=== PATIENT | male | born 1960 | race Caucasian/White ===

== ENCOUNTER → 2019-12-01 08:39 | Outpatient (BNVA) | payer OTHER, SELFPAY | PROVIDERS: Family Provider Nurse Practitioner Family; PCP Nurse Practitioner Family; Visit Provider Registered Nurse | DX: Z00.00 Encounter for general adult medical examination without abnormal findings (principal); I10 Essential (primary) hypertension | CPT/HCPCS: 80053; 80061; 85025 ==

== ENCOUNTER → 2020-12-02 11:28 | Outpatient (BNVA) | payer OTHER, SELFPAY | PROVIDERS: Family Provider Nurse Practitioner Family; PCP Nurse Practitioner Family; Visit Provider Nurse Practitioner Family | DX: I10 Essential (primary) hypertension (principal); Z00.00 Encounter for general adult medical examination without abnormal findings; M19.90 Unspecified osteoarthritis, unspecified site | CPT/HCPCS: 80053; 80061; 81003; 82306; 83036; 84443; 85025; G0103 ==

== ENCOUNTER → 2021-12-06 08:44 | Outpatient (BNVA) | payer OTHER, SELFPAY | PROVIDERS: Family Provider Nurse Practitioner Family; PCP Nurse Practitioner Family; Visit Provider Nurse Practitioner | DX: I10 Essential (primary) hypertension (principal) | CPT/HCPCS: 80053; 80061; 85025 ==

== ENCOUNTER → 2022-01-03 08:36 | Outpatient (BNVA) | payer OTHER, SELFPAY | PROVIDERS: Family Provider Nurse Practitioner Family; PCP Nurse Practitioner Family; Visit Provider Nurse Practitioner | DX: I10 Essential (primary) hypertension (principal) | CPT/HCPCS: 80048 ==

== ENCOUNTER → 2022-12-14 08:40 | Outpatient (BNVA) | payer OTHER, SELFPAY | PROVIDERS: Family Provider Nurse Practitioner Family; PCP Nurse Practitioner Family; Visit Provider Nurse Practitioner | DX: I10 Essential (primary) hypertension (principal); Z12.5 Encounter for screening for malignant neoplasm of prostate | CPT/HCPCS: 80053; 80061; 84443; 85025; G0103 ==

== ENCOUNTER → 2022-12-20 15:23 | Outpatient (BNVA) | payer OTHER, SELFPAY | PROVIDERS: Family Provider Nurse Practitioner Family; PCP Nurse Practitioner Family; Visit Provider Nurse Practitioner | DX: I10 Essential (primary) hypertension (principal) | CPT/HCPCS: 80053 ==

== ENCOUNTER → 2023-12-24 08:35 | Outpatient (BNVA) | payer OTHER, SELFPAY | PROVIDERS: Family Provider Nurse Practitioner Family; PCP Nurse Practitioner Family; Visit Provider Nurse Practitioner Family | DX: I10 Essential (primary) hypertension (principal); M19.90 Unspecified osteoarthritis, unspecified site; Z79.899 Other long term (current) drug therapy; Z13.6 Encounter for screening for cardiovascular disorders; E55.9 Vitamin D deficiency, unspecified | CPT/HCPCS: 80053; 80061; 81003; 82306; 83036; 84443; 85025; G0103 ==

== ENCOUNTER 2024-04-16 10:42 | Day surgery (SDC) | payer OTHER, SELFPAY ==
[2024-04-16 10:55] VITALS: BP 140/92; PULSE 80; RESP 18; TEMP 37.1; O2SAT 98
[2024-04-16] MEDS: sodium chloride 0.9% 1,000 ML 30 ML IV (11:08)
--- NOTE | 2024-04-16 11:44 | ANES.PREANE2 ---
Pre-Anesthetic Assessment Height/Weight: Height 1.78 m Weight 81.647 kg Temp Pulse Resp BP Pulse Ox O2 Del Method 98.7 F 80 18 140/92 98 Room Air 04/16/24 10:55 04/16/24 10:55 04/16/24 10:55 04/16/24 10:55 04/16/24 10:55 04/16/24 10:55 Preop Diagnosis: GERD,screening Operation Date: 04/16/24 12:00 Proposed Procedures p EGD 96609, 01013, G0121, Z12.11, K21.9(Not Applicable) - Evaristo Carson DO s Colonoscopy(Not Applicable) - Evaristo Carson DO Was Beta Jb taken within 24 hours: N/A Was Clonidine taken within 24 hours: N/A Last intake: Intake Last Liquid Date 04/15/24 Last Liquid Time 08:00 Last Solid Date 04/14/24 Last Solid Time 19:30 Social Alcohol Exam alert, oriented x 3, clear to auscultation bilaterally and regular rate & rhythm Airway Submandibular: within normal limits Cervical ROM: within normal limits Mallampati: Class II Dentition: full History/ROS No significant history except as noted and No significant complaints Pulmonary Cough CV/HEM Hypertension None reported Hepatic None reported GI Gastroesophageal Reflux Disease Metabolic None reported Musc/skel None reported Neuropsych None reported Anesthetic Plan ASA status: 2 Anesthesia: MAC Risk of > 500 ml blood loss (7ml/kg in children): No Medications/Allergies Home Medications Medication Instructions Recorded Confirmed Last Taken Type prkdkvc-upziohhfthhfq-oayerrks 250 1 tab PO Q6H PRN Headache 12/02/20 04/14/24 04/15/24 History mg-250 mg-65 mg tablet (Excedrin Extra Strength) unxxbtgu-vyn-lajzo acid 0.4 1 tab PO DAILY 12/02/20 04/14/24 04/15/24 History mg-lycopene 300 mcg-lutein 250 mcg tablet (Complete Multivitamin Adult 50 Plus) meloxicam 7.5 mg tablet 15 mg (2 x 7.5 mg) PO DAILY 90 04/02/23 04/14/24 04/15/24 Rx days #180 tabs lisinopril 20 mg tablet 20 mg PO DAILY 90 days #90 tabs 12/24/23 04/14/24 04/15/24 Rx Allergies Allergy/AdvReac Type Severity Reaction Status Date / Time Sulfa (Sulfonamide Allergy Unknown Verified 01/04/24 08:27 Antibiotics) Current Medications Generic Name Dose Route Start Last Admin Trade Name Freq PRN Reason Stop Dose Admin Sodium Chloride 1,000 mls @ 30 mls/hr 04/16/24 11:00 04/16/24 11:08 Sodium Chloride 0.9% IV 04/17/24 10:59 30 mls/hr .Q24H BURAK Administration PFSH Anesthesia Medical History Colon cancer screening Encounter for screening for cardiovascular disorders Medication management Arthritis Tick bite of back Family History Mother Ulcer Hiatal hernia Father Heart disease Social History Smoking and tobacco/nicotine status: never used tobacco/nicotine Alcohol intake: never Substance/Drug Use: never Adopted: No Caregiver/support person: No Lives independently: No Household members: spouse Marital status: Current occupational status: retired Sexually active: Yes Do you think of yourself as: Straight/Heterosexual Current gender identity: Male Data Anesthesia Cardiac Studies: No Data to Display
--- NOTE | 2024-04-16 12:12 | PM.HP ---
Providers/Chief Complaint Primary Care Provider: ANNA MARIE Moody Chief Complaint: Z12.11 History of Present Illness Joey Justice is a 63 year old male Review of Systems General: Reports: 10 or more systems reviewed and unremarkable except in HPI and below Medications/Allergies Home Medications Medication Instructions Recorded Confirmed Last Taken Type cjatuie-awrjpfrmmpjxn-corztbcn 250 1 tab PO Q6H PRN Headache 12/02/20 04/14/24 04/15/24 History mg-250 mg-65 mg tablet (Excedrin Extra Strength) sninxjvg-von-kdiid acid 0.4 1 tab PO DAILY 12/02/20 04/14/24 04/15/24 History mg-lycopene 300 mcg-lutein 250 mcg tablet (Complete Multivitamin Adult 50 Plus) meloxicam 7.5 mg tablet 15 mg (2 x 7.5 mg) PO DAILY 90 04/02/23 04/14/24 04/15/24 Rx days #180 tabs lisinopril 20 mg tablet 20 mg PO DAILY 90 days #90 tabs 12/24/23 04/14/24 04/15/24 Rx Allergies Allergy/AdvReac Type Severity Reaction Status Date / Time Sulfa (Sulfonamide Allergy Unknown Verified 01/04/24 08:27 Antibiotics) PFSH Acute PFSH: Medical History Colon cancer screening Encounter for screening for cardiovascular disorders Medication management Arthritis Tick bite of back Family History Mother Ulcer Hiatal hernia Father Heart disease Social History Smoking and tobacco/nicotine status: never used tobacco/nicotine Alcohol intake: never Substance/Drug Use: never Adopted: No Caregiver/support person: No Lives independently: No Household members: spouse Marital status: Current occupational status: retired Sexually active: Yes Do you think of yourself as: Straight/Heterosexual Current gender identity: Male Vitals/I&O/Wt Last Vital Signs Temp 98.7 F 04/16/24 10:55 Pulse 80 04/16/24 10:55 Resp 18 04/16/24 10:55 BP 140/92 04/16/24 10:55 Pulse Ox 98 04/16/24 10:55 O2 Del Method Room Air 04/16/24 10:55 Weight last 48 hrs Weight 180 lb A&P Assessment and plan (1) Colon cancer screening: (2) GERD (gastroesophageal reflux disease): Plan EGD and colonoscopy Attestations Medical Necessity Statement*: Home Coding Level of Care Code Acute Code for Chg Fwd Diagnoses Colon cancer screening Z12.11 GERD (gastroesophageal reflux disease) K21.9
[2024-04-16] MEDS: EPINEPHrine 1 mg/mL INJ XX (12:22)
[2024-04-16 12:39] VITALS: BP 115/75; PULSE 75; RESP 16; TEMP 36.5; O2SAT 96
[2024-04-16 12:55] VITALS: BP 134/90; PULSE 81; RESP 18; O2SAT 99
--- NOTE | 2024-04-16 13:25 | ANE.PACU2 ---
Inpatient post-anesthesia follow up: Airway intact: Yes Vital signs: Temperature 97.7 F Pulse Rate 81 Respiratory Rate 18 Blood Pressure 134/90 Pulse Oximetry 99 Oxygen Delivery Me thod Room Air Oxygen Flow Rate 4 Fraction of Inspir ed Oxygen Hydration adequate: Yes Nausea and vomiting: No Pain level: 1 Mental status: Baseline
== END 2024-04-16 13:27 | disposition home or self-care (01) ==
PROVIDERS: PCP Nurse Practitioner Family; Visit Provider Surgery
PROC: 0DJ08ZZ Inspection of Upper Intestinal Tract, Via Natural or Artificial Opening Endoscopic (ICD-10-PCS; CPT 43235; principal; 2024-04-16 12:00)
PROC: 0DJD8ZZ Inspection of Lower Intestinal Tract, Via Natural or Artificial Opening Endoscopic (ICD-10-PCS; CPT 45378; 2024-04-16 12:00)
DX: Z12.11 Encounter for screening for malignant neoplasm of colon (principal); K21.9 Gastro-esophageal reflux disease without esophagitis; K64.8 Other hemorrhoids; K44.9 Diaphragmatic hernia without obstruction or gangrene; K25.4 Chronic or unspecified gastric ulcer with hemorrhage; I10 Essential (primary) hypertension
CPT/HCPCS: 43239; 43255; 45378; 88305; J0171; J2704; J7030

== ENCOUNTER → 2024-05-12 13:40 | Outpatient (BNVA) | payer OTHER, SELFPAY | PROVIDERS: PCP Nurse Practitioner Family; Visit Provider Nurse Practitioner Family | DX: R68.89 Other general symptoms and signs (principal); R39.9 Unspecified symptoms and signs involving the genitourinary system; R30.9 Painful micturition, unspecified | CPT/HCPCS: 80053; 81003; 85025; 87086; 87400; 87426 ==

== ENCOUNTER → 2025-01-01 08:36 | Outpatient (BNVA) | payer OTHER, SELFPAY | PROVIDERS: PCP Nurse Practitioner Family; Visit Provider Nurse Practitioner Family | DX: Z13.6 Encounter for screening for cardiovascular disorders (principal); Z12.5 Encounter for screening for malignant neoplasm of prostate; I10 Essential (primary) hypertension; E83.51 Hypocalcemia; K21.9 Gastro-esophageal reflux disease without esophagitis; M19.90 Unspecified osteoarthritis, unspecified site; Z90.89 Acquired absence of other organs; Z98.890 Other specified postprocedural states | CPT/HCPCS: 80053; 80061; 81003; 82306; 83036; 84443; 85025; G0103 ==